=== PATIENT | male | born 1970 ===

== ENCOUNTER 2021-07-15 12:23 | Emergency (ER) | payer BC, MEDICAID, SELFPAY ==
--- NOTE | ~2021-07-15 | XR_ITS ---
EXAMINATION: XR CHEST CLINICAL INFORMATION: Cough COMPARISON: 01/22/2019 TECHNIQUE: Frontal view of the chest was obtained. FINDINGS: No significant abnormality is noted involving the heart, lungs, mediastinum, bony thorax or soft tissues. XR/XR chest 1V IMPRESSION: Unremarkable examination.
[2021-07-15 14:28] VITALS: BP 134/84; PULSE 88; RESP 16; TEMP 36.8; O2SAT 96; BMI 23.1
--- NOTE | 2021-07-15 14:41 | ED.URI ---
HPI - URI/Sore Throat General Chief Complaint: Upper Respiratory Symptoms Stated Complaint: COVID Symptoms/Vaccinated Time Seen by Provider: 07/15/21 14:27 Source: patient Mode of arrival: ambulatory Limitations: no limitations History of Present Illness HPI Narrative: This is a 50-year-old male past medical history significant for asthma presents to the emergency department with malaise, body aches, sore throat, headache, dry cough since last night. Patient tells me symptoms came on suddenly. Patient tells me with his experiencing similar symptoms. He tells me he took an at home COVID test which was positive, his 's test was negative. He tells me he has discomfort in his chest when he coughs however he does not report chest pain. He denies shortness of breath, fevers, chills, nausea, vomiting, abdominal pain, weakness. He is vaccinated against COVID, does not have his flu shot. MD elicited complaint: other (Cough) Pertinent past history: asthma Onset (ago): day(s) (2) Consistency: constant Severity: moderate Able to tolerate fluids by mouth: Yes Exacerbating factors: nothing Relieving factors: nothing Context: sick contacts ( with similar symptoms ) Associated symptoms: myalgias, sore throat and cough Treatments prior to arrival: none Related Data Previous Rx's Medication Instructions Recorded benzonatate 100 mg capsule 100 mg PO BID PRN #14 cap 07/15/21 Allergies Allergy/AdvReac Type Severity Reaction Status Date / Time No Known Allergies Allergy Unverified 04/05/20 14:42 Review of Systems Review of Systems: Constitutional : No Weight loss, No Fever, No Chills, + Fatigue, + Malaise ENT/Mouth : + sore throat, No Rhinorrhea Eyes: No Eye Pain, No Swelling, No Redness Cardiovascular : No Chest Pain, No SOB, No Dyspnea on Exertion, No Orthopnea, No Edema, No Palpitations Respiratory : + Cough, No Sputum, No Wheezing Gastrointestinal : No Nausea, No Vomiting, No Diarrhea, No Constipation, No abdominal Pain, No Hematochezia, No Melena Genitourinary : No Dysuria, No Urinary Frequency, No Hematuria, Musculoskeletal : No joint pain, + Myalgias, No Joint Swelling Skin : No Skin Lesions, No rash Neuro : No Weakness, No Numbness, No Dizziness, No Headache All other systems reviewed and are negative Yes all other systems are reviewed and are negative [facility] Past Medical History Attestation statement: The following information was validated with the patient. Source: old records reviewed and nursing notes reviewed Medical History Asthma Social History Social History Advance Directives: No Advance Directives Information Provided: No Physical Exam Vital Signs: Vital Signs: Last Vital Signs Temp 98.3 F 07/15/21 14:28 Pulse 88 07/15/21 14:28 Resp 16 07/15/21 14:28 BP 134/84 07/15/21 14:28 Pulse Ox 96 07/15/21 14:28 BMI result Body Mass Index 23.1 VSS He is saturating 96% even after ambulation. Appearance: Alert.? Oriented X3.? No acute distress.? Head: Normocephalic, atraumatic, no step-offs or deformities Eyes: Pupils equal, round and reactive to light.? ENT: Pharynx normal.? Neck: Normal inspection.? Neck supple.? CVS: Normal heart rate and rhythm.? Pulses normal.? Respiratory: No respiratory distress.? Breath sounds normal.? Abdomen: Soft and nontender.? Skin: Skin warm and dry.? Normal skin color.? Normal skin turgor.? Extremities: No lower extremity edema.? No calf ttp. 5/5 strength to bilateral upper and lower extremities Back: No midline tenderness, no C-spine tenderness, full range of motion, no CVA tenderness bilaterally Neuro: Oriented X 3.? No motor deficit.? No sensory deficit. Course Reevaluation(s) Reevaluation #1: Patient is COVID positive. X-rays unremarkable. Vital signs are stable. Patient saturating well on room air. No need for antibiotics at this time. I will send patient home with [facility] for cough. I have given him strict return precautions and have outlined those in his discharge. Comfortable with discharge home. Time: 15:49 MDM - URI/Sore Throat MDM Narrative Medical decision making narrative: [id number] YO M pmhx asthma presents with sudden onset sore throat, myalgias, body aches, fatigue, dry cough since last night. Vaccinated against COVID not Flu. w/ similar symptoms Physical examination benign. Plan at this time is to obtain a chest x-ray, flu/COVID/RSV. Medical Records Attestation: I reviewed the patient's medical records. Lab Data Attestation: I reviewed the patient's lab results. Labs: Lab Results 07/15/21 Range/Units 14:49 Influenza Type A (PCR) NEGATIVE (Negative) Influenza Type B (PCR) NEGATIVE (Negative) RSV RNA Qual (PCR) NEGATIVE (Negative) SARS-CoV-2 RNA (RT-PCR) POSITIVE A (Negative) Imaging Data Chest x-ray: Attestation: I personally reviewed and interpreted this imaging study as follows: Radiologist's impression: FINDINGS: No significant abnormality is noted involving the heart, lungs, mediastinum, bony thorax or soft tissues. XR/XR chest 1V IMPRESSION: Unremarkable examination. ? Critical Care Time Critical Care Time Critical Care Time: No Discharge Plan Discharge Clinical Impression: COVID-19, Cough Patient Disposition: Home, Self-Care Instructions: Acute Cough (ED), COVID-19 (Coronavirus Disease 2019) (ED) Additional Instructions: Take your medications as prescribed. If you were prescribed antibiotics today, it is important that you take your medication to their entirety, do not skip any doses, do not finish them early. Today you tested positive for COVID-19. Take Ibuprofen or Tylenol as needed for fevers or body aches. Quarantine for 14 days if you are not vaccinated or for 10 days if you are vaccinated. Drink plenty of fluids. Follow-up with your primary care provider this week. Return to the emergency department with new or worsening symptoms. Such as fevers, chills, nausea, vomiting, abdominal pain, chest pain, shortness of breath, weakness or lethargy. In case of emergency call 911 Your chest x-ray looked good no pneumonia. You can purchase an at home pulse oximeter to measure oxygen saturation of it drops below 94% please return to the emergency department or seek medical attention. Prescriptions: New benzonatate 100 mg capsule 100 mg PO BID PRN (Reason: cough) Qty: 14 RF: 0 Referrals: Sea Blackwood MD [Primary Care Provider] - 2 days Stand Alone Forms: Work/School Release
[2021-07-15 15:32] LABS: Influenza A PCR NEGATIVE (Negative); Influenza B PCR NEGATIVE (Negative); Resp Syncy Virus RNA Qual PCR NEGATIVE (Negative); SARS COV2 PCR INHOUSE POSITIVE (Negative)
== END 2021-07-15 16:04 | disposition home or self-care (01) ==
LOC: HO.ED 15:17
PROVIDERS: Physician Assistant; Emergency Provider Emergency Medicine; PCP Internal Medicine
DX: U07.1 COVID-19 (principal); J45.909 Unspecified asthma, uncomplicated
CPT/HCPCS: 0241U; 71045; 99283

== ENCOUNTER 2021-07-20 13:08 | Outpatient (REF) | payer BC, MEDICAID, SELFPAY ==
[2021-07-20 14:56] LABS: Binax Internal Control QC Valid; Binax Lot number: 9864; Binax Now Covid-19 Ag Positive (Negative)
== END 2021-07-20 13:09 | disposition home or self-care (01) ==
LOC: HO.LAB 13:08
PROVIDERS: Visit Provider Internal Medicine
DX: Z20.822 Contact with and (suspected) exposure to COVID-19 (principal)
CPT/HCPCS: 36415; C9803

== ENCOUNTER 2021-11-27 07:02 | Emergency (ER) | payer BC, MEDICAID, SELFPAY ==
[2021-11-27 07:16] VITALS: BP 110/80; PULSE 78; RESP 18; TEMP 36.4; O2SAT 97; BMI 25.0
[2021-11-27 07:37] LABS: COVID-19 Test Negative (Negative); IDNOW Serial# 9DB6401D; Influenza A Positive (Negative); Influenza B2 Negative (Negative)
--- NOTE | 2021-11-27 08:14 | ED_ITS ---
HPI - URI/Sore Throat General Chief Complaint: Upper Respiratory Symptoms Stated Complaint: ear pain running nose cough Time Seen by Provider: 11/27/21 08:14 Source: patient Mode of arrival: ambulatory Limitations: no limitations History of Present Illness HPI Narrative: Patient presents to the emergency department for evaluation of right ear pain, runny nose, cough, fevers, and headaches x2 days. Reports that his and daughters have tested positive for flu. He needs a work note. Has been taking Tylenol with improvement in fevers. Right ear without drainage, decreased hearing, states that the pain started after he was using a Q-tip the other day. Denies shaking chills, sore throat, chest pain, palpitations, shortness of breath, difficulty breathing, nausea, vomiting, abdominal pain, generalized weakness. MD elicited complaint: fever, cough and rhinorrhea Onset (ago): day(s) Consistency: constant Severity: mild Description of mucous: watery Able to tolerate fluids by mouth: Yes Exacerbating factors: nothing Relieving factors: nothing Treatments prior to arrival: acetaminophen Related Data Previous Rx's Medication Instructions Recorded benzonatate 100 mg capsule 100 mg PO BID PRN #14 cap 07/15/21 carbamide peroxide 6.5 % ear drops 5 drp OTIC (EAR) RIGHT DAILY 4 11/27/21 (Debrox) Days #15 ml Allergies Allergy/AdvReac Type Severity Reaction Status Date / Time No Known Allergies Allergy Unverified 04/05/20 14:42 Review of Systems Review of Systems: Constitutional: Positive fever. Positive chills. No weakness. Positive fatigue. ENT/ Mouth: Positive Ear Pain, no Nasal Congestion, no sore throat, positive Rhinorrhea, No Swallowing Difficulty Skin: No rash or itching. Cardiovascular: No chest pain. No palpitations. Respiratory: No shortness of breath. Positive cough. No sputum production. Gastrointestinal: No nausea. No vomiting. No diarrhea. No abdominal pain. Genitourinary: No burning micturition. No urinary frequency. Neurologic: No headache. No dizziness. No syncope. No numbness or tingling in the extremities. Musculoskeletal: No muscle pain. No back pain. No joint pain or stiffness. Yes all other systems are reviewed and are negative PMFSH Past Medical History Attestation statement: The following information was validated with the patient. Source: old records reviewed Medical History Asthma Social History Social History Advance Directives: No Advance Directives Information Provided: No Physical Exam Vital Signs: Vital Signs: Last Vital Signs Temp 97.5 F 11/27/21 07:16 Pulse 78 11/27/21 07:16 Resp 18 11/27/21 07:16 BP 110/80 11/27/21 07:16 Pulse Ox 97 11/27/21 07:16 BMI result Body Mass Index 25.0 Vital signs have been reviewed as normal and appeared to be correct. Blood pressure normal.? Heart rate normal.? Respiration rate normal. Temperature normal.? Oxygen saturation normal. Appearance: Alert.?Oriented to person, place and time. No acute distress.?Normal affect. Eyes: Pupils equal, round and reactive to light.? ENT: right ear canal with cerumen, no complete impaction, unable to visualize TM, no otorrhea. Left ear canal with cerumen, TM intact. Pharynx normal.?? Neck: Normal inspection.? Neck supple.?? CVS: Heart sounds normal. Normal heart rate and rhythm.? Pulses normal.?? Respiratory: No respiratory distress.? Lung sounds clear to auscultation bilaterally?? Abdomen: Soft and non-tender. Skin: Skin warm and dry.? Normal skin color.?? Extremities: No lower extremity edema.? Neuro: Moves all extremities spontaneously. Sensation intact bilaterally. No motor deficits. No focal neuro deficits. Ambulates with normal steady gait. Course Course Course Narrative: patient is a 51-year-old male with a past medical history of asthma presenting to emergency department for evaluation of symptoms and ear pain. Patient was found to be influenza A positive, COVID- 19 testing obtained was negative. He is well appearing, no apparent distress, speaking that full sentences and managing airway. Hemodynamically stable. Right ear canal with cerumen burden no complete impaction, advised against use of Q-tips or inserting anything into the canal as this may increase risk of TM rupture. Advised Debrox to loosen the cerumen and follow-up with primary care provider as needed. Provided with a return to work note. Discussed reasons to return back to the emergency department and conservative management of influenza, offered Tamiflu and he declined. Patient discharged home in stable condition. MDM - URI/Sore Throat Lab Data Labs: Lab Results 11/27/21 11/27/21 Range/Units 07:14 07:14 COVID-19 (ANA MARÍA) Negative (Negative) COVID-19 Clin Com See Note Influenza Type A (VIRGIL) Positive A (Negative) Influenza Type B (VIRGIL) Negative (Negative) Influenza A & B Note See Note Discharge Plan Discharge Clinical Impression: Influenza A Patient Disposition: Home, Self-Care Instructions: Influenza (ED) Additional Instructions: Please be sure to rest, stay well hydrated, eat small frequent meals, use Tylen ol and ibuprofen as needed for pain or fevers. You may return to work when your symptoms have resolved and when you are without a fever for 24 hour. Without the use of Tylenol or ibuprofen. Please return to the emergency department with any new or worsening symptoms or concerns. Regarding the wax buildup in your ear you may use Debrox as instructed to help loosen the wax. Do not insert anything into the ear canal such as a Q-tip as this may cause rupture of eardrum. Prescriptions: New Debrox 6.5 % drops 5 drp otic (ear) right DAILY 4 Days Qty: 15 0RF No Action benzonatate 100 mg capsule 100 mg PO BID PRN (Reason: cough) Qty: 14 0RF Stand Alone Forms: Work/School Release
== END 2021-11-27 08:38 | disposition home or self-care (01) ==
PROVIDERS: Emergency Provider Emergency Medicine; PCP Internal Medicine
DX: J10.1 Influenza due to other identified influenza virus with other respiratory manifestations (principal); H92.01 Otalgia, right ear; R05.9 Cough, unspecified; Z20.822 Contact with and (suspected) exposure to COVID-19; Z79.899 Other long term (current) drug therapy
CPT/HCPCS: 87502; 87635; 99283

== ENCOUNTER 2022-04-14 10:01 | Emergency (ER) | payer OTHER, SELFPAY | END 2022-04-14 13:39 | disposition left against medical advice (07) | PROVIDERS: Emergency Provider Emergency Medicine; PCP Internal Medicine | DX: M79.605 Pain in left leg (principal) ==

== ENCOUNTER 2023-07-25 09:24 | Emergency (ER) | payer OTHER, SELFPAY ==
[2023-07-25 09:35] VITALS: BP 122/81; PULSE 70; RESP 16; TEMP 36.5; O2SAT 98
--- NOTE | 2023-07-25 09:39 | ED.GENADULT ---
HPI - General Adult General Chief complaint: Upper Respiratory Symptoms Stated complaint: sore throat Time Seen by Provider: 07/25/23 09:28 Source: patient Mode of arrival: ambulatory Limitations: no limitations History of Present Illness HPI narrative: Patient is a 52 year old assigned male at with no reported medical history presenting to the emergency department today with a headache, cough, and runny nose. Patient states that over the last 4 days he has had these symptoms, after having come into contact with a COVID-19 positive individual. Patient denies any dizziness, lightheadedness, abdominal pain, nausea, vomiting, fever, chills, blurry vision, double vision, loss of vision, chest pain, difficulty breathing, shortness of breath, back pain, night sweats, pain with urination, increased urinary frequency, increased urinary urgency, blood in his urine or stool, syncope or a near syncopal episode, recent trauma or falls, bowel incontinence, bladder incontinence, bowel retention, bladder retention, or any other complaints at this time. Onset (ago): day(s) (3) Severity: mild Severity scale (1-10): 2 Relieving factors: none Exacerbating factors: none Associated symptoms: cough and headaches Treatments prior to arrival: none Related Data Previous Rx's Medication Instructions Recorded benzonatate 100 mg capsule 100 mg PO BID PRN cough #14 caps 07/15/21 carbamide peroxide 6.5 % ear drops 5 drp otic (ear) right DAILY 4 11/27/21 (Debrox) days #15 mL Allergies Allergy/AdvReac Type Severity Reaction Status Date / Time No Known Allergies Allergy Unverified 04/05/20 14:42 Review of Systems Constitutional: Constitutional: Reports no additional constitutional complaints, Denies chills, Denies fever(s), Reports headache(s) and Denies night sweats Eyes: Eyes: Reports no additional eye complaints, Denies blurry vision, Denies change in vision, Denies diplopia, Denies eye discharge, Denies loss of vision and Denies eye pain ENT: Denies dizziness, Reports headache(s) and Reports nasal congestion Cardiovascular: Cardiovascular: Reports no additional cardiovascular complaints, Denies chest pain, Denies lightheadedness, Denies Loss of Consciousness and Denies dyspnea Respiratory: Respiratory: Reports no additional respiratory complaints, Reports cough and Denies dyspnea Gastrointestinal: Gastrointestinal: Reports no additional gastrointestinal complaints, Denies abdominal pain, Denies melena, Denies hematochezia, Denies change in bowel habits and Denies change in stool character Genitourinary: Genitourinary: Reports no additional male genitourinary complaints, Denies hematuria, Denies oliguria, Denies difficulty urinating, Denies dysuria, Denies urinary frequency, Denies urinary hesitancy, Denies urinary incontinence and Denies urinary urgency Musculoskeletal: Musculoskeletal: Reports no additional musculoskeletal complaints, Denies numbness and Denies tingling Neurologic: Denies dizziness, Reports headache(s), Denies loss of vision, Denies numbness and Denies tingling Psychiatric: Psychiatric: Reports no additional psychiatric complaints Endocrine: Endocrine: Reports no additional endocrine complaints Hematologic/Lymphatic: Hematologic/Lymphatic: Reports no additional hematologic/lymphatic complaints Allergic/Immunologic: Allergic/Immunologic: Reports no additional allergic/immunologic complaints PMFSH Past Medical History Attestation statement: The following information was validated with the patient. Source: old records reviewed and nursing notes reviewed Onset Date is defined in the Problem List Problems that require an onset date and time if occurred within 24 hrs of arrival to the ED Aortic Dissection and Rupture; Neurologic impairment; Cardiopulmonary Arrest; Endotracheal Intubation; Insertion or Replacement of Mechanical Circulatory Assist Device Medical History Asthma Social History Social History Advance Directives: No Advance Directives Information Provided: Yes Physical Exam ED Vital Signs: Vital Signs - 24 hr 07/25/23 09:35 07/25/23 09:52 Temperature 97.7 F 97.7 F Pulse Rate 70 70 Respiratory Rate 16 16 Blood Pressure 122/81 122/81 Pulse Oximetry 98 98 Oxygen Delivery Method Room Air Room Air BMI result Body Mass Index 24.2 Const General: cooperative, no acute distress, alert and awake Nutritional Appearance: well nourished Orientation/consciousness: patient oriented x3 Limitations: no limitations HENMT Head: Yes normal to inspection and Yes atraumatic Ears: hearing grossly normal bilaterally and external ears normal General nose exam: Normal external nose present, no nasal discharge noted and no epistaxis Face and sinus: Yes normal facial exam, No abrasion and No laceration Mouth: Normal oral and palatal mucosa present, no drooling and no muffled voice Eyes General: appearance normal, both eyes and all related structures Periorbital: periorbital findings normal Eyelids: Yes eyelids normal Conjunctivae: conjunctivae normal Pupils: Equal, round and reactive pupils present EOM: EOMs intact bilaterally Neck Neck: Yes normal visual inspection, Yes full ROM and Yes no lymphadenopathy Chest Chest palpation & inspection: normal inspection of the chest Resp Effort & Inspection: normal respiratory effort and able to speak in complete sentences GI Inspection: Yes normal to inspection Neuro General: patient oriented x3 and moves all extremities Cranial nerves: Yes Equal, round and reactive pupils present Cognition (Neuro): normal cognition Motor exam (neuro): 5/5 motor strength present throughout Sensory Exam: Normal double simultaneous stimulation for sensation Coordination: [id number] test normal Extrem General: Yes normal to inspection, Yes full ROM and Yes capillary refill normal Psych Appearance: grossly normal Mental Status: mental status grossly normal Affect: normal affect Attitude: cooperative Thought process: Normal thought process present Thought content: Normal thought content present Insight: Good insight present (Psych) Medical Decision Making Medical Decision Making MDM Narrative: Patient is a 52 year old assigned male at with no reported medical history presenting to the emergency department today with a cough, runny nose, and headache. Patient's physical exam was unremarkable. Patient's COVID-19 test was positive. Patient's RSV, influenza, and strep tests were negative. I explained my physical exam findings as well as all test results to the patient. I answered all questions asked by the patient. I stressed the importance of the patient taking his medication as prescribed. I stressed the importance of the patient following up with his primary care provider. I stressed the importance of the patient returning to the emergency department immediately if his symptoms were to worsen or if he were to develop any dizziness, shortness of breath, difficulty breathing, chest pain, blurry vision, loss of vision, nausea, vomiting, abdominal pain, fever, chills, back pain, or any other complaints. Patient verbalized agreement and understanding with this treatment plan and discharge. Differential Diagnosis Differential Diagnoses: The differential diagnosis associated with the presentation includes COVID-19 Influenza RSV URI Strep pharyngitis Admission/Observation Consideration of admission/observation: Escalation of care including admission/observation considered Patient would have been admitted to the hospital had his work up had any findings where hospital admission was appropriate and his clinical presentation warranted hospital admission. Lab Data [facility] Lab Attestation statement: I reviewed the patient's lab results. My interpretation of these results are in the [facility] Rationale portion of this note. Labs: Lab Results 07/25/23 Range/Units 09:43 Influenza Type A (PCR) NEGATIVE (Negative) Influenza Type B (PCR) NEGATIVE (Negative) RSV RNA Qual (PCR) NEGATIVE (Negative) SARS-CoV-2 RNA (RT-PCR) POSITIVE A (Negative) S. pyogenes GrpA VIRGIL Negative (Negative) Discharge Plan Discharge Clinical Impression: COVID-19 Patient Disposition: Home, Self-Care Instructions: COVID-19 (Coronavirus Disease 2019) (ED) Additional Instructions: Follow up with your primary care provider. Return to the emergency department immediately if your symptoms worsen or if you develop any dizziness, shortness of breath, difficulty breathing, chest pain, blurry vision, loss of vision, nausea, vomiting, abdominal pain, fever, chills, back pain, or any other complaints. Prescriptions: No Action Debrox 6.5 % drops 5 drp otic (ear) right DAILY 4 Days Qty: 15 0RF benzonatate 100 mg capsule 100 mg PO BID PRN (Reason: cough) Qty: 14 0RF Referrals: Sea Blackwood III, MD [Primary Care Provider] - Stand Alone Forms: Work/School Release Interventions: ED Discharge Assessment Last Done: 07/25/23 11:48 Discharge Date/Time: 07/25/23 11:49 Print Language: Turkmen
[2023-07-25 09:52] VITALS: BP 122/81; PULSE 70; RESP 16; TEMP 36.5; O2SAT 98; BMI 24.2
== END 2023-07-25 11:49 | disposition home or self-care (01) ==
PROVIDERS: Emergency Provider Student in an Organized Health Care Education/Training Program; PCP Internal Medicine
DX: U07.1 COVID-19 (principal); J02.9 Acute pharyngitis, unspecified
CPT/HCPCS: 0241U; 87651; 99283

== ENCOUNTER 2023-08-01 09:36 | Emergency (ER) | payer SELFPAY ==
--- NOTE | ~2023-08-01 | XR_ITS ---
EXAMINATION: XR CHEST CLINICAL INFORMATION: Cough COMPARISON: Chest x-ray on 07/15/2021 TECHNIQUE: 2 views of the chest were obtained. FINDINGS: No significant abnormality is noted involving the heart, lungs, mediastinum, bony thorax or soft tissues. XR/XR chest 2V IMPRESSION: Unremarkable examination.
[2023-08-01 09:38] VITALS: BP 122/76; PULSE 74; RESP 18; TEMP 36.5; O2SAT 98; BMI 23.6
--- NOTE | 2023-08-01 09:40 | ECG_ITS ---
Test Reason : CP Blood Pressure : / mmHG Vent. Rate : 067 BPM Atrial Rate : 067 BPM P-R Int : 132 ms QRS Dur : 104 ms QT Int : 378 ms P-R-T Axes : 054 044 023 degrees QTc Int : 399 ms Normal sinus rhythm Normal ECG When compared with ECG of 22-JAN-2019 09:11, No significant change was found Referred By: Generic ED Physician Electronically Signed By:ANA MADSEN MD
--- NOTE | 2023-08-01 10:29 | ED.URI ---
HPI - URI/Sore Throat General Chief Complaint: Upper Respiratory Symptoms Stated Complaint: cough/ chest pain Time Seen by Provider: 08/01/23 10:06 Source: patient Mode of arrival: ambulatory Limitations: no limitations History of Present Illness HPI Narrative: this is a 52-year-old male with a history of asthma who presents to the ER with complaints of chest discomfort with coughing for 2 days. Patient reports he has had URI symptoms since July 25 when he was diagnosed with COVID. He has had a nonproductive cough. His chest is painful when he is coughing and breathing. No chest pain at rest or with exertion. He denies any fevers, chills, shortness of breath, leg swelling, leg pain, vomiting, diarrhea, abdominal pain. He does have a history of asthma but has not used his inhaler in many years and no longer has 1 at home. Related Data Previous Rx's Medication Instructions Recorded benzonatate 100 mg capsule 100 mg PO BID PRN cough #14 caps 07/15/21 carbamide peroxide 6.5 % ear drops 5 drp otic (ear) right DAILY 4 11/27/21 (Debrox) days #15 mL albuterol sulfate 90 mcg/actuation 2 puff inhalation QID PRN 08/01/23 aerosol inhaler shortness of breath or wheezing #8.5 grams benzonatate 200 mg capsule 200 mg PO TID PRN cough #20 caps 08/01/23 ibuprofen 600 mg tablet 600 mg PO Q8H PRN pain #30 tabs 08/01/23 Allergies Allergy/AdvReac Type Severity Reaction Status Date / Time No Known Allergies Allergy Verified 08/01/23 09:38 Review of Systems Review of Systems: Yes all other systems are reviewed and are negative Constitutional: Constitutional: Reports no additional constitutional complaints, Denies body ache(s), Denies chills, Denies fever(s), Denies headache(s) and Denies weakness Eyes: Eyes: Reports no additional eye complaints and Denies change in vision ENT: Reports system reviewed and no additional complaints, except as documented, Denies dizziness, Denies headache(s), Denies nasal congestion, Denies nasal discharge and Denies neck pain Cardiovascular: Cardiovascular: Reports no additional cardiovascular complaints, Reports chest pain, Denies leg edema and Denies dyspnea Respiratory: Respiratory: Reports no additional respiratory complaints, Reports cough and Denies dyspnea Gastrointestinal: Gastrointestinal: Reports no additional gastrointestinal complaints, Denies abdominal pain, Denies diarrhea, Denies nausea and Denies vomiting Genitourinary: Genitourinary: Denies urinary incontinence Musculoskeletal: Musculoskeletal: Reports no additional musculoskeletal complaints, Denies back pain, Denies arthralgias, Denies joint swelling, Denies neck pain, Denies numbness and Denies tingling Integumentary/Breasts: Skin/Breast: Reports system reviewed and no additional complaints, except as docu and Denies rash Neurologic: Reports system reviewed and no additional complaints, except as documented, Denies Abnormal speech present, Denies dizziness, Denies headache(s), Denies numbness, Denies tingling and Denies weakness PMFSH Past Medical History Attestation statement: The following information was validated with the patient. Source: old records reviewed and nursing notes reviewed Onset Date is defined in the Problem List Problems that require an onset date and time if occurred within 24 hrs of arrival to the ED Aortic Dissection and Rupture; Neurologic impairment; Cardiopulmonary Arrest; Endotracheal Intubation; Insertion or Replacement of Mechanical Circulatory Assist Device Medical History Asthma Social History Social History Advance Directives: No Advance Directives Information Provided: No Physical Exam Vital Signs: Vital Signs: Last Vital Signs Temp 97.7 F 08/01/23 09:38 Pulse 74 08/01/23 09:38 Resp 18 08/01/23 09:38 BP 122/76 08/01/23 09:38 Pulse Ox 98 08/01/23 09:38 O2 Del Method Room Air 08/01/23 09:38 BMI result Body Mass Index 23.6 Const: General: cooperative, healthy appearing, comfortable and no acute distress Orientation/consciousness: patient oriented x3 Limitations: no limitations HEENT: Head: Yes normal to inspection Ears: hearing grossly normal bilaterally and TM's normal bilaterally General nose exam: Normal external nose present Face and sinus: Yes normal facial exam Mouth: Normal oral and palatal mucosa present Throat: Yes posterior oropharynx normal, Yes tonsils normal and Yes uvula midline Eyes: General: appearance normal, both eyes and all related structures Pupils: Equal, round and reactive pupils present Neck: Neck: Yes normal visual inspection, Yes full ROM, Yes no lymphadenopathy and Yes no meningeal signs Chest: Chest palpation & inspection: normal inspection of the chest Resp: Effort & Inspection: normal respiratory effort Auscultation: clear to auscultation bilaterally Cardio: Rate: regular rate Rhythm: regular rhythm Peripheral pulses: Peripheral pulses 2+ throughout GI: Inspection: Yes normal to inspection Palpation (GI): Soft to palpation and nontender Auscultation: normal bowel sounds Back/Spine/Pelvis: Thoracic/Lumbar Spine: thoracic and lumbar spine normal to inspection Skin: General skin exam: no rashes or lesions noted Neuro: General: patient oriented x3, no meningeal signs, no focal motor deficits and normal sensation to monofilament Cranial nerves: Yes Equal, round and reactive pupils present Cognition (Neuro): normal cognition Speech: No Abnormal speech present Gait exam (Neuro): Normal gait present Motor exam (neuro): 5/5 motor strength present throughout Extrem: General: Yes normal to inspection, Yes no pedal edema and Yes no calf tenderness Course Course Course Narrative: EKG nonischemic, chest x-ray shows no signs of infection. Flu testing is negative. Likely chest wall strain secondary to coughing with recent viral infection. Will discharge home with supportive measures. Reviewed worrisome signs and symptoms of when to return to the emergency room. Comfortable plan for discharge home Medical Decision Making Medical Decision Making MDM Narrative: this is a 52-year-old male with a history of asthma who presents to the ER with complaints of chest discomfort with coughing for 2 days. Patient reports he has had URI symptoms since July 25 when he was diagnosed with COVID. He has had a nonproductive cough. His chest is painful when he is coughing and breathing. No chest pain at rest or with exertion. He denies any fevers, chills, shortness of breath, leg swelling, leg pain, vomiting, diarrhea, abdominal pain. He does have a history of asthma but has not used his inhaler in many years and no longer has 1 at home. LS CTA, normal exam, stable VS. Will check chest x-ray, EKG, flu test Differential Diagnosis Differential Diagnoses: The differential diagnosis associated with the presentation includes Low concern for PE-no hypoxia or tachypnea or tachycardia or clinical findings concerning for DVT Low concern for ACS with normal EKG, HPI not c/w with ACS (not exertional, no other associated symptoms) chest wall strain pneumonia Admission/Observation Consideration of admission/observation: Escalation of care including admission/observation considered no hypoxia or tachypnea requiring supplemental oxygen and admission Lab Data MDM Lab Attestation statement: I reviewed the patient's lab results. Labs: Lab Results 08/01/23 Range/Units 10:13 Influenza Type A (VIRGIL) Negative (Negative) Influenza Type B (VIRGIL) Negative (Negative) Influenza A & B Note See Note Independent Interpretation I performed an independent interpretation of an: EKG and Plain X-Ray Interpretation: I independently reviewed the EKG which shows normal sinus rhythm with a rate of 67, normal AL, normal QRS, normal QT I independently reviewed the x-ray and agree with the radiology report. Radiology Impression Discussion of test interpretation with radiology: I have reviewed the radiologist's reading. Radiologist Impression: [address] [address] XRay Report Signed Patient: Eugenio Blackwood MR#: [id number] : 1970 Acct:[id number] Age/Sex: 52 / M ADM Date: 08/01/23 Loc: .ED Attending Dr: Ordering Physician: Kezia Alcaraz NP Date of Service: 08/01/23 Procedure(s): XR chest 2V Accession Number(s): [id number] cc: Sea Blackwood III, MD; Kezia Alcaraz NP~ EXAMINATION: XR CHEST CLINICAL INFORMATION: Cough COMPARISON: Chest x-ray on 07/15/2021 TECHNIQUE: 2 views of the chest were obtained. FINDINGS: No significant abnormality is noted involving the heart, lungs, mediastinum, bony thorax or soft tissues. XR/XR chest 2V IMPRESSION: Unremarkable examination. Tests considered The following testing was considered but not selected: low suspician for PE requiring advanced imaging or labs Prescription Management I considered prescription management with: Pain Medication, Antiviral and Antibiotic Discharge Plan Discharge Clinical Impression: Chest wall muscle strain Patient Disposition: Home, Self-Care Instructions: Muscle Strain (ED), Chest Wall Pain (ED) Additional Instructions: Chest x-ray is normal EKG looks reassuring Flu testing is negative Take the medication as needed as prescribed Prescriptions: New benzonatate 200 mg capsule 200 mg PO TID PRN (Reason: cough) Qty: 20 0RF ibuprofen 600 mg tablet 600 mg PO Q8H PRN (Reason: pain) Qty: 30 0RF albuterol sulfate 90 mcg/actuation HFA aerosol inhaler 2 puff inhalation QID PRN (Reason: shortness of breath or wheezing) Qty: 8.5 0RF No Action Debrox 6.5 % drops 5 drp otic (ear) right DAILY 4 Days Qty: 15 0RF benzonatate 100 mg capsule 100 mg PO BID PRN (Reason: cough) Qty: 14 0RF Referrals: Sea Blackwood III, MD [Primary Care Provider] - 5 days
[2023-08-01 10:35] LABS: IDNOW Serial# 152EDE1D; Influenza A Negative (Negative); Influenza B2 Negative (Negative)
== END 2023-08-01 11:07 | disposition home or self-care (01) ==
PROVIDERS: Nurse Practitioner Family; Emergency Provider Emergency Medicine; PCP Internal Medicine
DX: S29.011A Strain of muscle and tendon of front wall of thorax, initial encounter (principal); X50.9XXA Other and unspecified overexertion or strenuous movements or postures, initial encounter; R05.9 Cough, unspecified; Y93.89 Activity, other specified; Y92.9 Unspecified place or not applicable; Y99.9 Unspecified external cause status
CPT/HCPCS: 71046; 87502; 93005; 99283; 99284

== ENCOUNTER → 2023-08-01 09:40 | Outpatient (BNV) | payer SELFPAY | PROVIDERS: Emergency Provider Emergency Medicine; PCP Internal Medicine; Visit Provider Internal Medicine Cardiovascular Disease | DX: R07.9 Chest pain, unspecified (principal) | CPT/HCPCS: 93010 ==

== ENCOUNTER 2024-01-16 23:08 | Emergency (ER) | payer OTHER, SELFPAY ==
[2024-01-16 23:22] VITALS: BP 150/98; PULSE 61; RESP 16; TEMP 36.7; O2SAT 97; BMI 24.6
--- NOTE | 2024-01-16 23:32 | ED_ITS ---
HPI - Ear Problem General Chief complaint: Ear Problems Stated complaint: ear pain x3 days Time Seen by Provider: 01/16/24 23:18 Source: patient and family Mode of arrival: ambulatory Limitations: no limitations History of Present Illness ED Provider: Leroy PORTER Related Data Previous Rx's ?Medication ?Instructions ?Recorded benzonatate 100 mg capsule 100 mg PO BID PRN cough #14 caps 07/15/21 carbamide peroxide 6.5 % ear drops 5 drp otic (ear) right DAILY 4 11/27/21 (Debrox) days #15 mL albuterol sulfate 90 mcg/actuation 2 puff inhalation QID PRN 08/01/23 aerosol inhaler shortness of breath or wheezing #8.5 grams benzonatate 200 mg capsule 200 mg PO TID PRN cough #20 caps 08/01/23 ibuprofen 600 mg tablet 600 mg PO Q8H PRN pain #30 tabs 08/01/23 amoxicillin 875 mg-potassium 1 tab PO BID 7 days #14 tabs 01/16/24 clavulanate 125 mg tablet ketorolac 10 mg tablet 10 mg PO TID PRN pain 5 days #15 01/16/24 tabs Allergies Allergy/AdvReac Type Severity Reaction Status Date / Time No Known Allergies Allergy Verified 01/16/24 23:25 Review of Systems Review of Systems: Yes all other systems are reviewed and are negative PMFSH Past Medical History Attestation statement: The following information was validated with the patient. Source: old records reviewed and nursing notes reviewed Medical History Asthma Physical Exam Vital Signs: Vital Signs: Last Vital Signs Temp 98.0 F 01/16/24 23:22 Pulse 61 01/16/24 23:22 Resp 16 01/16/24 23:22 BP 150/98 H 01/16/24 23:22 Pulse Ox 97 01/16/24 23:22 O2 Del Method Room Air 01/16/24 23:22 BMI result Body Mass Index 24.6 vss Appearance: Alert.? Oriented X3.? No acute distress.? Head: Normocephalic, atraumatic, no step-offs or deformities Eyes: Pupils equal, round and reactive to light.? ENT: Pharynx normal.? Uvula midline. Speaking in full sentences controlling secretions + tenderness with palpation of left molar, no fluctuance however possible early abscess. Left ear canal erythematous, left tympanic membrane with erythema and mild bulging. Moderate amount of cerumen which was removed with curette to the left ear. No mastoid tenderness bilaterally. No pain with manipulation of external ear b/l. Neck: Normal inspection.? Neck supple.? CVS: Normal heart rate and rhythm.? Pulses normal.? Respiratory: No respiratory distress.? Breath sounds normal.? Abdomen: Soft and nontender.? Skin: Skin warm and dry.? Normal skin color.? Normal skin turgor.? Extremities: No lower extremity edema.? No calf ttp. 5/5 strength to bilateral upper and lower extremities Back: No midline tenderness, no C-spine tenderness, full range of motion, no CVA tenderness bilaterally Neuro: Oriented X 3.? No motor deficit.? No sensory deficit. CN 2-12 intact Course Reevaluation(s) Reevaluation #1: Educated patient on diagnosis and treatment plan, answered all question, patient verbalizes understanding. At this time patient will be discharged home, advised to return with new or worsening symptoms. Educated on worrisome signs and symptoms and when to return. At this time I feel comfortable discharge home. Time: 23:35 Medical Decision Making Medical Decision Making MDM Narrative: 53-year-old male presents with left-sided ear pain and dental pain for the past 3 days. No recent dental work Physical exam Pharynx normal.? Uvula midline. Speaking in full sentences controlling secretions + tenderness with palpation of left molar, no fluctuance however possible early abscess. Left ear canal erythematous, left tympanic membrane with erythema and mild bulging. Moderate amount of cerumen which was removed with curette to the left ear. No mastoid tenderness bilaterally. No pain with manipulation of external ear b/l. History and physical exam concerning for poor dentition with possible caries and possible early dental abscess to the left lower molar. No fluctuance or drainable fluid collection at this time. No signs of threat to airway, Karlos's angina. Left ear pain likely otitis media. Moderate amount of cerumen was removed this was cerumen impaction. No signs of perforated tympanic membrane, mastoiditis otitis externa. Plan will discharge from triage will give Toradol for pain. Will discharge on Augmentin. Will have him follow up with dentist. Differential Diagnosis Differential Diagnoses: The differential diagnosis associated with the presentation includes History and physical exam concerning for poor dentition with possible caries and possible early dental abscess to the left lower molar. No fluctuance or drainable fluid collection at this time. No signs of threat to airway, Karlos's angina. Left ear pain likely otitis media. Moderate amount of cerumen was removed this was cerumen impaction. No signs of perforated tympanic membrane, mastoiditis otitis externa. Admission/Observation Consideration of admission/observation: Escalation of care including admission/observation considered no indication Prescription Management I considered prescription management with: Pain Medication and Antibiotic Critical Care Time Critical Care Time Critical Care Time: No Discharge Plan Discharge Clinical Impression: Otitis media, Pain, dental, Caries, Cerumen impaction Patient Disposition: Home, Self-Care Instructions: Ear Infection (ED) Additional Instructions: Take your medications as prescribed. If you were prescribed antibiotics today, it is important that you take your medication to their entirety, do not skip any doses, do not finish them early. Follow-up with your primary care provider this week. Return to the emergency department with new or worsening symptoms. Such as fevers, chills, chest pain, shortness of breath, nausea, vomiting, dizziness, headache, vision changes, lethargy In case of emergency call 911 Toradol has been sent to your pharmacy, you tolerated this well in the department. Please take this as prescribed do not take this with ibuprofen, or other NSAIDs, do not mix this with alcohol. Side effects of this medication including increased risk for bleeding and possible kidney injury. Prescriptions: New ketorolac 10 mg tablet 10 mg PO TID PRN (Reason: pain) 5 Days Qty: 15 0RF amoxicillin-pot clavulanate 875-125 mg tablet 1 tab PO BID 7 Days Qty: 14 0RF No Action Debrox 6.5 % drops 5 drp otic (ear) right DAILY 4 Days Qty: 15 0RF benzonatate 100 mg capsule 100 mg PO BID PRN (Reason: cough) Qty: 14 0RF benzonatate 200 mg capsule 200 mg PO TID PRN (Reason: cough) Qty: 20 0RF ibuprofen 600 mg tablet 600 mg PO Q8H PRN (Reason: pain) Qty: 30 0RF albuterol sulfate 90 mcg/actuation HFA aerosol inhaler 2 puff inhalation QID PRN (Reason: shortness of breath or wheezing) Qty: 8.5 0RF Referrals: Physician,Unknown J [Primary Care Provider] - 2 days Stand Alone Forms: Work/School Release Print Language: Grenadian
[2024-01-16] MEDS: Ketorolac Tromethamine 30 MG/ML VIAL IM (23:35)
[2024-01-16 23:44] VITALS: BP 150/98; PULSE 61; RESP 16; TEMP 36.7; O2SAT 97
[2024-01-16 23:54] LABS: IDNOW Serial# 08D9AD1C; Strep A Nucleic Acid Negative (Negative)
== END 2024-01-16 23:46 | disposition home or self-care (01) ==
LOC: HO.ED 23:44
PROVIDERS: Physician Assistant; Emergency Provider Internal Medicine
DX: H66.92 Otitis media, unspecified, left ear (principal); H61.22 Impacted cerumen, left ear; K02.9 Dental caries, unspecified
CPT/HCPCS: 69210; 87651; 96372; 99283; 99284; J1885

== ENCOUNTER 2024-04-08 16:58 | Emergency (ER) | payer OTHER, SELFPAY ==
--- NOTE | ~2024-04-08 | XR_ITS ---
EXAMINATION: XR ankle RT min 3V (accession [id number]), XR foot RT min 3V (accession [id number]) CLINICAL INFORMATION: rolled ankle, lateral swelling COMPARISON: None. TECHNIQUE: Three views of the right foot and 3 views of the right ankle FINDINGS: * No acute fracture or dislocation. * Calcaneal enthesopathy. * No soft tissue abnormality. XR/XR ankle RT min 3V IMPRESSION: No acute fracture or dislocation. Calcaneal enthesopathy. Electronically signed by: Grace Anderson MD 04/08/2024 07:38 PM EDT
--- NOTE | ~2024-04-08 | XR_ITS ---
EXAMINATION: XR ankle RT min 3V (accession [id number]), XR foot RT min 3V (accession [id number]) CLINICAL INFORMATION: rolled ankle, lateral swelling COMPARISON: None. TECHNIQUE: Three views of the right foot and 3 views of the right ankle FINDINGS: * No acute fracture or dislocation. * Calcaneal enthesopathy. * No soft tissue abnormality. XR/XR foot RT min 3V IMPRESSION: No acute fracture or dislocation. Calcaneal enthesopathy. Electronically signed by: Grace Anderson MD 04/08/2024 07:38 PM EDT
[2024-04-08 17:19] VITALS: BP 124/70; PULSE 82; RESP 16; TEMP 36.6; O2SAT 97; BMI 24.6
--- NOTE | 2024-04-08 17:20 | ED_ITS ---
HPI - Extremity Injury (Lower) General Chief Complaint: Extremity Injury, Lower Stated Complaint: R ankle pain? Poss. Sprain Time Seen by Provider: 04/08/24 17:32 Source: patient Mode of arrival: ambulatory Limitations: no limitations History of Present Illness ED Provider: ALEX RAI PA-C HPI Narrative: 53 year old male with no significant pmhx presents to the ED today for evaluation of right ankle pain status post rolling his ankle while playing basketball around 1400 today. Reports jumping up to shoot the ball, his foot landed on another player's foot and rolled inward. Reports immediate pain which has been worsening. States the ankle is swollen. Denies falling to the ground. Denies head strike or LOC. Not on anticoagulation. No [id number] pain medications prior to arrival. He has been able to ambulate on the right ankle with discomfort. Related Data Previous Rx's ?Medication ?Instructions ?Recorded benzonatate 100 mg capsule 100 mg PO BID PRN cough #14 caps 07/15/21 carbamide peroxide 6.5 % ear drops 5 drp otic (ear) right DAILY 4 11/27/21 (Debrox) days #15 mL albuterol sulfate 90 mcg/actuation 2 puff inhalation QID PRN 08/01/23 aerosol inhaler shortness of breath or wheezing #8.5 grams benzonatate 200 mg capsule 200 mg PO TID PRN cough #20 caps 08/01/23 ibuprofen 600 mg tablet 600 mg PO Q8H PRN pain #30 tabs 08/01/23 amoxicillin 875 mg-potassium 1 tab PO BID 7 days #14 tabs 01/16/24 clavulanate 125 mg tablet ketorolac 10 mg tablet 10 mg PO TID PRN pain 5 days #15 01/16/24 tabs oxycodone 5 mg tablet 5 mg PO Q8H PRN pain (scale score 04/08/24 4-6) #5 tabs Allergies Allergy/AdvReac Type Severity Reaction Status Date / Time No Known Allergies Allergy Verified 04/08/24 17:22 Review of Systems Review of Systems: Constitutional: No fever, chills, fatigue, night sweats, weight changes ENT/Mouth: No ear pain, hearing loss, nasal congestion, sinus pain, rhinorrhea, sore throat Eyes: No eye pain, swelling, redness, vision changes, discharge Cardio: No chest pain, palpitations, DIAMOND, orthopnea, peripheral edema Pulm: No SOB, cough, sputum, wheezing, dyspnea, hemoptysis GI: No nausea, vomiting, hematemesis, abdominal pain, diarrhea, constipation, hematochezia, melena : No irregular bleeding, dysuria, frequency, urgency, hesitancy, hematuria, flank pain, urinary flow changes, urinary incontinence or retention MSK: No back pain, neck pain, joint pain, myalgias, +right ankle pain Skin: No lesions, rashes Neuro: No weakness, numbness, paresthesias, LOC, dizziness, headache Psych: No anxiety/panic, depression, SI/HI, AH/VH All other systems reviewed and are negative. [facility] Past Medical History Attestation statement: The following information was validated with the patient. Source: old records reviewed and nursing notes reviewed Medical History Asthma Social History Social History Advance Directives: No Advance Directives Information Provided: No Do you have a plan to hurt others: No Plan Physical Exam Vital Signs: Vital Signs: Last Vital Signs Temp 97.9 F 04/08/24 17:19 Pulse 82 04/08/24 17:19 Resp 16 04/08/24 17:19 BP 124/70 04/08/24 17:19 Pulse Ox 97 04/08/24 17:19 O2 Del Method Room Air 04/08/24 17:19 BMI result Body Mass Index 24.6 Vital signs stable, afebrile General: Well appearing, in no acute distress. Skin: Warm, dry, intact. No rashes or lesions. Head: Normocephalic, atraumatic. Cardiac: Chest wall symmetric. RRR. Lungs: Normal respiratory effort without accessory muscle use or wheezes.? Abdomen: Soft, non-tender, non-distended. No rebound tenderness or guarding. Positive BS x4. Back: No midline spinous or paraspinal tenderness. No step off deformity. Ext: + noted swelling to lateral aspect of right ankle. No overlying erythema or ecchymoses. No obvious deformity. Tender to palpation. No palpable crepitus or fluctuance. No palpable deformity. ROM to right ankle limited due to swelling. Presents in wheelchair however ambulated with limping gait into th e ED. Neuro: AOx3. Normal speech. Strength 5/5 intact throughout. Sensation intact to light touch. NV intact distally. Psych: Appropriate mood and affect. Responds appropriately to questions. Course Course Course Narrative: This is a Rapid Medical Examination (RME) performed by Donaldo Rai PA-C in triage. Full HPI, ROS, assessment and treatment plan per primary provider in the Main ED. 53 yo male here with right ankle pain/ swelling s/p rolling right ankle during a basketball game at 1230 today. pain w/ ambulating. + noted swelling to lateral right ankle. ttp. no palpable deformity. 2+ dp/pt pulse intact. Plan: xrs Reevaluation(s) Reevaluation #1: 2000 -- xrs right ankle/ foot without noted fracture. Patient likely sprained his ankle. Patient provided with Jj wrap, walking boot and crutches for comfort. Educated on rice therapy. Advised to take Tylenol and ibuprofen home. Will send oxy for breakthrough pain. Patient has remained stable throughout ED visit today. Discussed worrisome signs and symptoms and when to return to the ED. All questions answered at this time. Patient is agreeable with disposition and stable for discharge. Medications Administered Discontinued Medications Generic Name Dose Route Start Last Admin Trade Name Freq PRN Reason Stop Dose Admin Ketorolac Tromethamine 30 mg 04/08/24 17:41 04/08/24 19:02 Ketorolac Tromethamine 30 Mg/Ml Vial IM 04/08/24 17:42 30 mg ONCE ONE Administration Medical Decision Making Medical Decision Making [facility] Narrative: 53 year old male with no significant pmhx presents to the ED today for evaluation of right ankle pain status post rolling his ankle while playing basketball around 1400 today. Vital signs stable, afebrile. He is nontoxic appearing in no acute distress. On exam of RLE, there is noted swelling to lateral aspect of right ankle. No overlying erythema or ecchymoses. No obvious deformity. Tender to palpation. No palpable crepitus or fluctuance. No palpable deformity. ROM to right ankle limited due to swelling. Presents in wheelchair however ambulated with limping gait into the ED. NV intact distally. Differential diagnosis includes ligament/tendon injury, fracture. Lower suspicion for dislocation. Presentation not consistent with pseudogout, gout, Lyme arthritis, septic joint. Unlikely neurovascular compromise, threat to limb, compartment syndrome. Plan for imaging, pain control and re-evaluation. Differential Diagnosis Differential Diagnoses: The differential diagnosis associated with the presentation includes As above Admission/Observation Not indicated Independent Interpretation I performed an independent interpretation of an: Plain X-Ray Interpretation: X-ray right ankle/foot without acute fracture, agree with radiologist's interpretation. Radiology Impression Discussion of test interpretation with radiology: I have reviewed the radiologist's reading. Radiologist Impression: EXAMINATION: XR ankle RT min 3V (accession [id number]), XR foot RT min 3V (accession [id number]) CLINICAL INFORMATION: rolled ankle, lateral swelling COMPARISON: None. TECHNIQUE: Three views of the right foot and 3 views of the right ankle FINDINGS: * No acute fracture or dislocation. * Calcaneal enthesopathy. * No soft tissue abnormality. XR/XR foot RT min 3V IMPRESSION: No acute fracture or dislocation. Calcaneal enthesopathy. Electronically signed by: Grace Anderson MD 04/08/2024 07:38 PM EDT External Record Review External record reviewed: Inpatient record Prescription Management I considered prescription management with: Pain Medication (Oxycodone) Social Determinants Patient?s care significantly limited by Social Determinants of Health including: Other Social Determinant of Health Procedures Orthopedic Splinting/Casting Injury #1: Side: right Lower Extremity Injury Location: ankle and foot Lower Extremity Immobilizer: boot orthosis and Jj wrap Other Orthopedic Equipment: crutches Critical Care Time Critical Care Time Critical Care Time: No Discharge Plan Discharge Clinical Impression: Right ankle sprain Patient Disposition: Home, Self-Care Instructions: Ankle Sprain (ED), Crutch Instructions (ED), How to Use an Elastic Bandage (ED), R.I.C.E. Treatment (ED) Additional Instructions: You were evaluated in the ED today for right ankle injury. Your x-rays do not demonstrate fracture. You were supplied with a walking boot and crutches. You may bear weight on your right ankle as tolerated. Utilize RICE therapy - rest, ice, compress, elevate the ankle. I recommend you take 600mg ibuprofen every 6 hours or Tylenol 650mg every 6 hours as needed for pain. If needed, you can alternate these medications so that you take one medication every 3 hours. For example, at noon take ibuprofen, then at 3pm take Tylenol, then at 6pm take ibuprofen. Oxycodone has been sent to your pharmacy for you to take as needed for breakthrough pain. Follow up with PCP as needed. If symptoms persist, you may follow up with ortho outpatient. You have been provided with a referral. Call them to make an appointment. They will not call you. Return with new or worsening symptoms. In the case of an emergency call 911. Prescriptions: New oxycodone 5 mg tablet 5 mg PO Q8H PRN (Reason: pain (scale score 4-6)) Qty: 5 0RF Rx Instructions: Partial Fill upon patient request. No Action Debrox 6.5 % drops 5 drp otic (ear) right DAILY 4 Days Qty: 15 0RF benzonatate 100 mg capsule 100 mg PO BID PRN (Reason: cough) Qty: 14 0RF ketorolac 10 mg tablet 10 mg PO TID PRN (Reason: pain) 5 Days Qty: 15 0RF amoxicillin-pot clavulanate 875-125 mg tablet 1 tab PO BID 7 Days Qty: 14 0RF benzonatate 200 mg capsule 200 mg PO TID PRN (Reason: cough) Qty: 20 0RF ibuprofen 600 mg tablet 600 mg PO Q8H PRN (Reason: pain) Qty: 30 0RF albuterol sulfate 90 mcg/actuation HFA aerosol inhaler 2 puff inhalation QID PRN (Reason: shortness of breath or wheezing) Qty: 8.5 0RF [place] [facility] [place] [facility] [facility] [place] Group] Print Language: Niuean
[2024-04-08] MEDS: Ketorolac Tromethamine 30 MG/ML VIAL IM (19:02)
[2024-04-08 20:14] VITALS: BP 124/70; PULSE 82; RESP 16; TEMP 36.6; O2SAT 97
== END 2024-04-08 20:15 | disposition home or self-care (01) ==
PROVIDERS: Emergency Provider Emergency Medicine; PCP Internal Medicine
DX: S93.401A Sprain of unspecified ligament of right ankle, initial encounter (principal); M25.571 Pain in right ankle and joints of right foot; X50.1XXA Overexertion from prolonged static or awkward postures, initial encounter; Y93.67 Activity, basketball; Y92.310 Basketball court as the place of occurrence of the external cause; Y99.8 Other external cause status; Z79.899 Other long term (current) drug therapy
CPT/HCPCS: 29515; 73610; 73630; 96372; 99284; J1885

== ENCOUNTER 2024-04-19 12:36 | Outpatient (AMB) | payer SELFPAY ==
--- NOTE | 2024-04-19 12:49 | MHC.OFFVIS ---
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 Patient reports playing basketball when he jumping up to shoot the ball, his foot landed on another player's foot and rolled inward. He states that his ankle is feeling a little better today, however he is having soreness on the lateral aspect of the ankle. Patient reports trying Advil when needed for mild relief. 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 The patient presented to the ED on 04/08/24 status post right ankle when playing basketball. He jumped up to shoot the ball, and his right foot landed on another player?s foot, causing his foot to roll inward, which resulted in immediate pain. X-rays of the right ankle were obtained. He was supplied with a walking boot and crutches. He was recommended to utilize RICE therapy and to weight bear as tolerated. He was prescribed oxycodone 5 mg PO Q8H PRN and was advised to OTC ibuprofen Q6H or OTC Tylenol Q6H or can alternate between the medications Q3H. While in the office today, the patient reports his right ankle pain has mildly improved today; however, he continues to have soreness on the lateral aspect of the right ankle. He has tried Advil PRN with mild pain relief. He was in the boot for 5 days after the injury and then discontinued due to returning to normal activities, which includes driving. The patient has a social history of working at [email or web address] 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 Review of Systems Const All systems reviewed & are unremarkable except as noted in HPI and below Physical Exam Vital Signs: BMI result Body Mass Index 24.5 Const General: cooperative and no acute distress Orientation/consciousness: patient oriented x3 Resp Effort & Inspection: normal respiratory effort and able to speak in complete sentences Cardio Peripheral pulses: Peripheral pulses 2+ throughout Skin General skin exam: no rashes or lesions noted Neuro General: patient oriented x3 Extrem Other: Right ankle: Mild to moderate edema over the lateral malleolus accompanied by tenderness to palpation. Able to perform full dorsiflexion, plantar flexion, pronation, and supination with mild discomfort. Sensations are intact. Pedal pulses are intact. Assessment & Plan Assessment & Plan (1) Right ankle sprain: Code(s): S93.401A - Sprain of unspecified ligament of right ankle, initial encounter Category: Medical Plan Mr. Blackwood is a 51-year-old male presents in the office today, as a new patient, for an evaluation of right ankle sprain. The patient presented to the ED on 04/08/24 status post a right ankle when playing basketball. He jumped up to shoot the ball, and his right foot landed on another player?s foot, causing his foot to roll inward, which resulted in immediate pain. X-rays of the right ankle were obtained. He was supplied with a walking boot and crutches. He was recommended to utilize RICE therapy and to weight bear as tolerated. He was prescribed oxycodone 5 mg PO Q8H PRN and was advised to OTC ibuprofen Q6H or OTC Tylenol Q6H or can alternate between the medications Q3H. While in the office today, the patient reports his right ankle pain has mildly improved today; however, he continues to have soreness on the lateral aspect of the right ankle. He has tried Advil PRN with mild pain relief. He was in the boot for 5 days after the injury and then discontinued due to returning to normal activities, which includes driving. 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 The patient was provided with a lace-up ankle brace, off the shelf, that would be helpful for support during his daily activities. He was referred to physical therapy. He was given a work note stating he will remain out of work for the next two weeks and then he will return to full-time, regular duty. Follow-up will be in 4 weeks, or sooner if needed. X-rays of the right ankle, obtained on 04/08/24, revealed: No acute fracture or dislocation. Calcaneal enthesopathy. Orders: Orders PT Evaluation and Treatment Today S93.401A - Sprain of unspecified ligament of right ankle, initial encounter Medications: Discontinued oxycodone Partial Fill upon patient request. Discontinued Reason: Patient no longer taking 5 mg PO Q8H PRN 5 tabs 0RF pain (scale score 4-6) Patient Instructions: Scribed by Diana Pelletier curator medical museum, for Jerri Palacios PA-C on 04/19/24 at 1:20 pm EST. Coding Level of Care Code New Pt Level 4 (76597) Diagnoses Right ankle sprain S93.401A
[2024-04-19 12:51] VITALS: BMI 24.5
== END 2024-04-19 13:21 | disposition home or self-care (01) ==
LOC: HO.HOS 12:36
PROVIDERS: PCP Internal Medicine; Visit Provider Physician Assistant
DX: S93.401A Sprain of unspecified ligament of right ankle, initial encounter (principal); X50.0XXA Overexertion from strenuous movement or load, initial encounter; Y93.67 Activity, basketball
CPT/HCPCS: 99204

== ENCOUNTER → 2024-04-19 12:36 | Outpatient (BNVA) | payer OTHER, SELFPAY | PROVIDERS: PCP Internal Medicine; Visit Provider Physician Assistant | DX: S93.401A Sprain of unspecified ligament of right ankle, initial encounter (principal); X58.XXXA Exposure to other specified factors, initial encounter; Y93.67 Activity, basketball; Y92.9 Unspecified place or not applicable; Y99.9 Unspecified external cause status; Z79.891 Long term (current) use of opiate analgesic | CPT/HCPCS: 99202 ==

== ENCOUNTER 2024-05-17 13:36 | Outpatient (AMB) | payer SELFPAY ==
--- NOTE | 2024-05-17 13:50 | MHC.OFFVIS ---
Intake Visit Reasons: OV - right ankle sprain, DOI 04/08/24 Intake Note: Eugenio is a 53 year old male who presents today as a new patient for a evaluation of his right ankle sprain, DOI 04/08/24. Patient reports he is still having some pain on the lateral aspect of the ankle. He believes that he should've started PT before returning to work. He is having some swelling as well as numbness in his toes that started a couple days from the injury. Allergies No Known Allergies Allergy (Verified 05/17/24 13:51) HPI HPI OV - right ankle sprain, DOI 04/08/24: Details: 53-year-old male who presents in the office today for a follow-up for the right ankle sprain status post injury when playing basketball and his right foot landed on another player?s foot, causing his foot to roll inward with immediate pain, which occurred on 04/08/24. I last saw the patient in the office on 04/19/24, when she was provided with a lace-up brace and referred to physical therapy. He was advised to remain out of work, and a work note was provided at that encounter. While in the office today, the patient reports ongoing pain on the lateral aspect of the right ankle. He mentions mild edema as well as numbness in his toes that started a couple days after the injury. He believes that he should have started physical therapy before returning to work. 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 Review of Systems Const All systems reviewed & are unremarkable except as noted in HPI and below Physical Exam Const General: cooperative, healthy appearing and no acute distress Orientation/consciousness: patient oriented x3 Resp Effort & Inspection: normal respiratory effort and able to speak in complete sentences Cardio Rate: regular rate Peripheral pulses: Peripheral pulses 2+ throughout GI Palpation (GI): Soft to palpation Skin General skin exam: no rashes or lesions noted Lesions: no lesions Rashes: no rashes Neuro General: patient oriented x3 Extrem Other: Right ankle: Mild to moderate edema over the lateral malleolus accompanied by tenderness to palpation. Able to perform full dorsiflexion, plantar flexion, pronation, and supination with mild discomfort. Sensation intact. Pedal pulses are intact. Assessment & Plan Assessment & Plan (1) Right ankle sprain: Code(s): S93.401A - Sprain of unspecified ligament of right ankle, initial encounter Category: Medical Plan Mr. Blackwood is a 53-year-old male who presents in the office today for a follow-up for the right ankle sprain status post injury when playing basketball and his right foot landed on another player?s foot, causing his foot to roll inward with immediate pain which occurred on 04/08/24. I last saw the patient in the office on 04/19/24 when she was provided with a lace-up brace and referred to physical therapy. He was advised to remain out of work and a work note was provided at that encounter. While in the office today, the patient reports ongoing pain on the lateral aspect of the right ankle. He mentions mild edema as well as numbness in his toes that started a couple days after the injury. He believes that he should have started physical therapy before returning to work. The patient was unable to begin physical therapy; therefore, a new order was placed today. I have updated the work note stating to limit ambulating the stairs. Follow-up will be in 6 weeks, or sooner if needed for revaluation. Orders: Orders PT Evaluation and Treatment 05/17/24 S93.401A - Sprain of unspecified ligament of right ankle, initial encounter Patient Instructions: Scribed by Diana Pelletier senior medical director, for Jerri Palacios PA-C on 05/17/24 at 1:56 pm EST. Coding Level of Care Code Est Pt Level 3 (02309) Diagnoses Right ankle sprain S93.401A
== END 2024-05-17 14:17 | disposition home or self-care (01) ==
LOC: HO.HOS 13:36
PROVIDERS: PCP Internal Medicine; Visit Provider Physician Assistant
DX: S93.401A Sprain of unspecified ligament of right ankle, initial encounter (principal)
CPT/HCPCS: 99213

== ENCOUNTER → 2024-05-17 13:36 | Outpatient (BNVA) | payer OTHER, SELFPAY | PROVIDERS: PCP Internal Medicine; Visit Provider Physician Assistant | DX: S93.401A Sprain of unspecified ligament of right ankle, initial encounter (principal); X50.3XXA Overexertion from repetitive movements, initial encounter; Y93.67 Activity, basketball; Y92.9 Unspecified place or not applicable; Y99.9 Unspecified external cause status | CPT/HCPCS: 99212 ==

== ENCOUNTER 2024-06-11 10:14 | Emergency (ER) | payer OTHER, SELFPAY ==
[2024-06-11 10:28] VITALS: BP 118/79; PULSE 63; RESP 18; TEMP 36.6; O2SAT 99; BMI 24.5
--- NOTE | 2024-06-11 11:10 | ED_ITS ---
HPI - Ear Problem General Chief complaint: Ear Problems Stated complaint: l ear pain Time Seen by Provider: 06/11/24 10:32 Source: patient, RN notes reviewed and old records reviewed Mode of arrival: ambulatory Limitations: no limitations History of Present Illness ED Provider: ALEX BARRAGAN PA-C HPI Narrative: 53 year old male with no significant pmhx presents to the ED today for evalua tion of left ear pain x24 hours. Admits to recent upper respiratory infection with symptoms of dry cough and nasal congestion which has since resolved. Denies trauma/ injury to the ear. Denies hearing changes, drainage from the ear, fever/chills, jaw pain, ear swelling, neck pain. Denies FB. Denies hx of DM. Related Data Previous Rx's ?Medication ?Instructions ?Recorded benzonatate 100 mg capsule 100 mg PO BID PRN cough #14 caps 07/15/21 carbamide peroxide 6.5 % ear drops 5 drp otic (ear) right DAILY 4 11/27/21 (Debrox) days #15 mL albuterol sulfate 90 mcg/actuation 2 puff inhalation QID PRN 08/01/23 aerosol inhaler shortness of breath or wheezing #8.5 grams benzonatate 200 mg capsule 200 mg PO TID PRN cough #20 caps 08/01/23 ibuprofen 600 mg tablet 600 mg PO Q8H PRN pain #30 tabs 08/01/23 amoxicillin 875 mg-potassium 1 tab PO BID 7 days #14 tabs 01/16/24 clavulanate 125 mg tablet ketorolac 10 mg tablet 10 mg PO TID PRN pain 5 days #15 01/16/24 tabs amoxicillin 875 mg-potassium 1 tab PO Q12H 7 days #14 tabs 06/11/24 clavulanate 125 mg tablet Allergies Allergy/AdvReac Type Severity Reaction Status Date / Time No Known Allergies Allergy Verified 06/11/24 10:29 Review of Systems Review of Systems: Constitutional: No fever, chills, fatigue, night sweats, weight changes ENT/Mouth: No hearing loss, nasal congestion, sinus pain, rhinorrhea, sore throat, +left ear pain Eyes: No eye pain, swelling, redness, vision changes, discharge Cardio: No chest pain, palpitations, DIAMOND, orthopnea, peripheral edema Pulm: No SOB, cough, sputum, wheezing, dyspnea, hemoptysis GI: No nausea, vomiting, hematemesis, abdominal pain, diarrhea, constipation, hematochezia, melena : No irregular bleeding, dysuria, frequency, urgency, hesitancy, hematuria, flank pain, urinary flow changes, urinary incontinence or retention MSK: No back pain, neck pain, joint pain, myalgias Skin: No lesions, rashes Neuro: No weakness, numbness, paresthesias, LOC, dizziness, headache Psych: No anxiety/panic, depression, SI/HI, AH/VH All other systems reviewed and are negative. [facility] Past Medical History Attestation statement: The following information was validated with the patient. 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 No mastoid tenderness/ fluctuance. no protrusion of the auricle. Left EAC without erythema, edema or discharge. No cerumen. TM intact, erythematous, bulging. No noted effusion. + No pain on manipulation of right pinna or tragus. No mastoid tenderness. Right EAC without erythema, edema or discharge. TM intact without erythema, effusion, or bulging. Head: Yes normal to inspection, Yes No palpable skull fracture present, Yes normocephalic and Yes atraumatic Ears: hearing grossly normal bilaterally Face and sinus: Yes normal facial exam and Yes sinuses nontender Eyes: General: appearance normal, both eyes and all related structures Pupils: Equal, round and reactive pupils present Neck: Neck: Yes normal visual inspection and Yes no lymphadenopathy Resp: Effort & Inspection: normal respiratory effort and able to speak in complete sentences Auscultation: clear to auscultation bilaterally Cardio: Rate: regular rate Rhythm: regular rhythm Skin: General skin exam: no rashes or lesions noted Neuro: General: patient oriented x3 and gait normal Cranial nerves: Yes Equal, round and reactive pupils present Course Course Course Narrative: 1119 -- Physical exam is consistent with left otitis media. I did discuss this with patient. Will send augmentin to pharmacy for treatment. Advised to take tylenol/ motrin at home for pain/ discomfort. Patient has remained stable throughout ED visit today. Discussed worrisome signs and symptoms and when to return to the ED. All questions answered at this time. Patient is agreeable with disposition and stable for discharge. Medical Decision Making Medical Decision Making [facility] Narrative: 53 year old male with no significant pmhx presents to the ED today for evaluation of left ear pain x24 hours. Vital signs stable, afebrile. he is nontoic appearing and in NAD. no cervical LAD. minimal pain on manipulation of left pinna. No mastoid tenderness/ fluctuance. no protrusion of the auricle. Left EAC without erythema, edema or discharge. No cerumen. TM intact, erythematous, bulging. No noted effusion. Differential diagnosis includes otitis media, otitis externa. Unlikely mastoiditis, malignant otitis externa. Plan for discharge. Differential Diagnosis Differential Diagnoses: The differential diagnosis associated with the presentation includes as above. Admission/Observation Not indicated External Record Review External record reviewed: Inpatient record Tests considered The following testing was considered but not selected: I considered obtaining imaging however no suspicion for deep tissue infection, not warranted at this time Prescription Management I considered prescription management with: Antibiotic (augmentin) Social Determinants Patient?s care significantly limited by Social Determinants of Health including: Other Social Determinant of Health Critical Care Time Critical Care Time Critical Care Time: No Discharge Plan Discharge Clinical Impression: Otitis media Qualifiers: Chronicity: acute Laterality: left Recurrence: non-recurrent Spontaneous tympanic membrane rupture: without spontaneous rupture Patient Disposition: Home, Self-Care Instructions: Ear Infection (ED) Additional Instructions: You were evaluated in the ED today for left ear pain. You have an inner ear infection of your left ear. Treatment for this is with antibiotics. Augmentin is an antibiotic that has been sent to the pharmacy for treatment. Please take this twice a day for 7 days to treat the infection. Do not stop taking this early or skip any doses as this may cause infection to persist or worsen. Take Tylenol, Motrin at home for fevers/pain. Please follow up with your primary care physician. Return with new or worsening symptoms. In the case of an emergency call 911. Prescriptions: New amoxicillin-pot clavulanate 875-125 mg tablet 1 tab PO Q12H 7 Days Qty: 14 0RF No Action Debrox 6.5 % drops 5 drp otic (ear) right DAILY 4 Days Qty: 15 0RF benzonatate 100 mg capsule 100 mg PO BID PRN (Reason: cough) Qty: 14 0RF ketorolac 10 mg tablet 10 mg PO TID PRN (Reason: pain) 5 Days Qty: 15 0RF amoxicillin-pot clavulanate 875-125 mg tablet 1 tab PO BID 7 Days Qty: 14 0RF benzonatate 200 mg capsule 200 mg PO TID PRN (Reason: cough) Qty: 20 0RF ibuprofen 600 mg tablet 600 mg PO Q8H PRN (Reason: pain) Qty: 30 0RF albuterol sulfate 90 mcg/actuation HFA aerosol inhaler 2 puff inhalation QID PRN (Reason: shortness of breath or wheezing) Qty: 8.5 0RF Referrals: Sea Blackwood III, MD [Primary Care Provider] - Discharge Date/Time: 06/11/24 11:28 Print Language: Palestinian
[2024-06-11 11:24] VITALS: BP 118/79; PULSE 63; RESP 18; TEMP 36.6; O2SAT 99
== END 2024-06-11 11:28 | disposition home or self-care (01) ==
PROVIDERS: Emergency Provider Emergency Medicine; PCP Internal Medicine
DX: H66.92 Otitis media, unspecified, left ear (principal)
CPT/HCPCS: 99282; 99283

== ENCOUNTER 2025-02-13 15:15 | Emergency (ER) | payer OTHER, SELFPAY ==
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
[2025-02-13 15:29] VITALS: BP 108/84; PULSE 70; RESP 18; TEMP 36.6; O2SAT 98; BMI 24.1
[2025-02-13 16:04] LABS: Hematocrit 41.9 % (42.0-52.0); Hemoglobin 14.6 g/dl (14.0-18.0); Mean Corpuscular HGB Conc 34.8 g/dl (31.0-36.0); Mean Corpuscular Hemoglobin 29.6 pg (27.0-33.0); Mean Corpuscular Volume 84.8 fL (80.0-98.0); NRBC Abs Auto 0.000 X10*3/uL (0.0-0.012); NRBC Pct Auto 0.0 /100WBC (0.0-0.2); Platelet Count 228 X10*3/uL (160-400); Red Blood Count 4.94 X10*6/uL (4.60-5.80); White Blood Count 8.8 X10*3/uL (4.8-10.8)
--- OUTSIDE RECORDS SUMMARY | 2025-02-13 16:08 | XMS_ITS ---
Author Name [facility] Organization Unknown Care Team Organization Name Specialty Phone Email Start Date End Da te [facility] REINA BLACKWOOD Primary Care 05/27/2022 4
--- OUTSIDE RECORDS SUMMARY | 2025-02-13 16:08 | XMS_ITS | Clinical Summary ---
Author Organization [facility] Address [address] [place] [address] Care Team Providers Care Corporate Logistics Manager Name Role Phone Unavailable Primary Care Provider Unavailabl e Source Comments PLEASE NOTE, if this patient is a minor, it may be UNLAWFUL to discuss sensitive information that is contained in these records (such as FAMILY PLANNING, MENTAL HEALTH or SUBSTANCE ABUSE) with the minor patient's parent or other person without the patient's specific authorization.[facility] Immunizations Immunization Administration Dates Next Due Moderna COVID-19 Vaccine, re d cap blue label, 12+ Primary Series 12/25/2020,11/27/2020 Social History Tobacco Use Types Packs/Day Years Used Date Smoking Tobacco: Never Assessed Social Connections Answer Date Recorded Social Connections and Isolation 0 01/23/2024 Financial Resource Strain Answer Date R ecorded Financial Resource Strain 0 2023 Stress Answer Date Recorded Stress 0 01/23/2024 Physical Activity Answer Date Recorded Physical Activity 0 01/23/2024 Food Insecurity Answer Date Recorded Food 0 01/23/2024 Transportation Needs Answer Date Record ed Transportation 0 01/23/2024 Housing Stability Answer Date Recorded Housing 0 01/23/2024 Safety and Environment Answer Date Armond rded Safety 0 01/23/2024 Utilities Answer Date Recorded Utilities 0 01/23/2024 Employment Answer Date Recorded Employment 0 01/23/2024 Sex and Gender Information Value Date Recorded Sex Assigned at Not on file Legal Sex Male 10:49 AM PDT Gender Identity Not on file Sexual Orientation Not on file Plan of Treatment Health Maintenance Due Date Last Done Comments Anxiety Screening 1971 Diabetes Screening 1971 Hepatitis C Screening 1971 Lipid Screening 1971 Tobacco Screening 1971 HIV Screening 1986 Hypertension Screening (#1) 1989 Imm-Hepatitis B (1 of 3 - 19 + 3-dose series) 1990 CT Colonography 2016 Colonoscopy 2016 Colorectal Cancer Screening 2016 FIT/gFOBT 2016 Fecal DNA 2016 Flexible Sigmoidoscopy 2016 Imm-Zoster, Recombinant (1 of 2) 2021 [id number] (3 - season) 2024 021, 11/27/2020 Imm-Influenza (#1) 2024 Alcohol and Drug Screen 07/20/2024 Depression Annual Screen 07/20/2024 Imm-DTaP/Tdap/Td (3 - Td or Tdap) 01/04/2030 020, 06/28/2014 Insurance [employer]
--- OUTSIDE RECORDS SUMMARY | 2025-02-13 16:08 | XMS_ITS | Clinical Summary ---
Author Organization [facility] Address [address] [place] [address] Phone Care Team Providers Care Kitman Name Role Phone Sea Blackwood MD Primary Care Provider [phone] Allergies No known active allergies Medications oxyCODONE (ROXICODONE) 5 mg immediate release tablet Take 1 Tablet by mouth every 8 hours as needed for Pain. 06/06/2022 Active Active Problems Problem Noted Date Diagnosed Date Asthma 07/07/2024 Cubital tunnel syndrome on left 01/21/2022 Medial epicondylitis, left 01/21/2022 COVID-19 07/16/2021 [place] (07/07/2024): [place] [facility] [place] Immunizations Name Administration Dates Next Due Tdap Tetanus diptheria acell ular pertussis (Boostrix; Adacel) 7yo and older 10/05/2024,01/05/2020,06/28/2014 Surgical History Surgery Date Site/Laterality Comments APPENDECTOMY PROCEDURE: HISTORICAL APPENDECTOMY WISDOM TOOTH EXTRACTION PROCEDURE: HISTORICAL WISDOM TEETH EXTRACTION Medical History Medical History Date Comments Asthma DX:Asthma Family History Medical History Relation Name Comments Stomach cancer Brother Heart failure Father Other cancer Father's side Relation Name Status Comments Brother Father Father's side Social History Tobacco Use Types Packs/Day Years Used Date Smoking Tobacco: Never Smokeless Tobacco: Never Alcohol Use Standard Drinks/Week Comments No 0 (1 standard drink = 0.6 oz pur e alcohol) Sex and Gender Information Value Date Recorded Sex Assigned at Male 10/15/2024 9:28 AM EDT Legal Sex Male 2:33 PM EST Gender Identity Male 10/15/2024 9:28 AM EDT Sexual Orientation Straight 10/15/2024 9: 28 AM EDT Obstetrics History Last Filed Vital Signs Vital Sign Reading Time Taken Comments Blood Pressure 122/84 10/15/2024 9:10 AM EDT Pulse 64 10/15/2024 9:10 AM EDT Temperature 37.1 C (98.8 F) 10/15/2024 9:10 AM EDT Respiratory Rate 16 10/15/2024 9:10 AM EDT Oxygen Saturation 98% 10/15/2024 9:10 AM EDT Inhaled Oxygen Concentration - - Weight 72.6 kg (160 lb) 10/15/2024 9:10 AM EDT Height 172.7 cm (5' 8 ) 10/15/2024 9:10 AM EDT Body Mass Index 24.33 10/15/2024 9:10 AM EDT Plan of Treatment Health Maintenance Due Date Last Done Comments Hepatitis B Vaccines (1 of 3 - 19+ 3-dose series) 1990 Pneumococcal Vaccine: 50+ Years (1 of 2 - PCV) 1990 HIV Screening 06/28/2022 Hepatitis C Screening 06/28/2022 Social Influencers of Health Screening 06/28/2022 COVID-19 Vaccine (4 - 2023-2 5 season) 2024 08/31/2021, 12/25/2020, 11/27/2020 Depression Screening 07/20/2024 Influenza Vaccine (#1) 2025 Cholesterol Screening (Lipid Panel) 04/20/2026 04/20/2021 Colorectal Cancer Screening: Colonoscopy 05/30/2031 05/30/2021 DTaP,Tdap,and Td Vaccines (4 - Td or Tdap) 10/05/2034 10/05/2024, 01/05/2020, 06/28/2014 Zoster Vaccines Completed 12/31/2022, 10/28/2021 HIB Vaccines Aged Out No longer eligi ble based on patient's age to complete this topic HPV Vaccines Aged Out No longer eligi ble based on patient's age to complete this topic Hepatitis A Vaccines Aged Out No long er eligible based on patient's age to complete this topic IPV Vaccines Aged Out No longer eligi ble based on patient's age to complete this topic MMR Vaccines Aged Out No longer eligi ble based on patient's age to complete this topic Meningococcal ACWY Vaccine Aged Out N o longer eligible based on patient's age to complete this topic Meningococcal B Vaccine Aged Out No l onger eligible based on patient's age to complete this topic RSV Immunization Patients Under 20 months Aged Out No longer eligible b ased on patient's age to complete this topic Varicella Vaccines Aged Out No longer eligible based on patient's age to complete this topic Procedures Procedure Name Priority Date/Time Associated Diagnosis Comments COLONOSCOPY Routine 05/30/2021 LIPID PANEL Routine 04/20/2021 from Last 3 Months or Most Recently Relevant to Health Maintenance Results * Colonoscopy (05/30/2021) Colonoscopy No Interpretation , Abstracted Anatomical Region Laterality Modality Other Historical Provider HEALTH MAINTENANCE Final Result * (ABNORMAL) Lipid panel (04/20/2021) LDL/HDL Ratio 4 0 - 4 Triglycerides 85 0 - 150 mg/dL Cholesterol 209(A) 0 - 200 mg/dL HDL 52 >=40 mg/dL LDL Cholesterol 140(A) 0 - 100 mg/dL Blood Venous blood specimen / Unknown Historical Provider LAB BLOOD ORDERABLES Lucía l Result from Last 3 Months or Most Recently Relevant to Health Maintenance Insurance [employer] Care Teams Kitman Relationship Specialty Start Date End Date Sea Blackwood MD [address] [place] [phone] PCP - General Internal Medicine 06/26/14
[2025-02-13 16:17] LABS: Alanine Aminotransferase 28 U/L (0-40); Albumin Level 4.1 g/dL (3.5-5.0); Alkaline Phosphatase 76 U/L (39-117); Anion Gap 12 (12-20); Aspartate Amino Transferase 32 U/L (5-37); Blood Urea Nitrogen 21 mg/dL (9-16); Calcium 9.1 mg/dL (8.4-10.2); Carbon Dioxide 24 mmol/L (22-29); Chloride 109 mmol/L (96-108); Creatinine Clr Calc Pharmacy 68.3; Estimated Glomerular Filt Rate > 60; Potassium 4.0 mmol/L (3.3-5.1); Sodium 141 mmol/L (135-145); Total Protein 7.1 g/dL (6.5-8.0)
[2025-02-13] MEDS: iohexoL 350 MG/ML 100 ML INFUS..BTL IV (17:03)
[2025-02-13 17:07] VITALS: BP 125/75; PULSE 75; RESP 18; TEMP 36.5; O2SAT 95
[2025-02-13] MEDS: oxyCODONE HCl Immed Release 5 MG TABLET PO (18:28)
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
--- NOTE | 2025-02-13 19:09 | PC.NURSE ---
this rn assumed care of pt, pt resting in stretcher, no acute distress noted, offers no complaints at this time, all neuros in tact
[2025-02-13 19:52] VITALS: BP 139/86; PULSE 61; RESP 17; TEMP 36.6; O2SAT 97
[2025-02-13 19:56] VITALS: BP 139/86; PULSE 61; RESP 17; TEMP 36.6; O2SAT 97
== END 2025-02-13 20:05 | disposition home or self-care (01) ==
PROVIDERS: Emergency Provider Emergency Medicine; PCP Internal Medicine
DX: S17.9XXA Crushing injury of neck, part unspecified, initial encounter (principal); V03.00XA Pedestrian on foot injured in collision with car, pick-up truck or van in nontraffic accident, initial encounter; Y93.89 Activity, other specified; Y92.008 Other place in unspecified non-institutional (private) residence as the place of occurrence of the external cause; Y99.9 Unspecified external cause status
CPT/HCPCS: 36415; 70450; 70498; 71260; 80053; 85027; 96372; 99284; J1885; Q9967

== ENCOUNTER → 2025-02-13 15:33 | Outpatient (BNV) | payer OTHER, SELFPAY | PROVIDERS: Emergency Provider Emergency Medicine; PCP Internal Medicine; Visit Provider Radiology Diagnostic Radiology | DX: M54.2 Cervicalgia (principal); I51.7 Cardiomegaly; R22.0 Localized swelling, mass and lump, head | CPT/HCPCS: 70450; 70498; 71260 ==